=== PATIENT | female | born 1975 | race African-American/Black ===

== ENCOUNTER 2017-05-30 14:56 | Emergency (ER) | payer OTHER, BC ==
[~2017-05-30] VITALS: Ht 165.1 cm; Wt 97.3 kg
[~2017-05-30 14:56] MED LIST: ENDOCET 5-3251 EACH PO; FLEXERIL10 MG PO; MOTRIN800 MG PO; Motrin PO; PRENATAL1 EACH PO
[2017-05-30] MEDS ORDERED: FLEXERIL10 MG PO (17:03)
[2017-05-30] MEDS ORDERED: MOTRIN800 MG PO (17:03)
[2017-05-30 17:30] VITALS: BP 158/102
== END 2017-05-30 17:32 | disposition home or self-care (01) ==
LOC: EME 14:56
DX: S39.012A Strain of muscle, fascia and tendon of lower back, initial encounter (principal); V49.40XA Driver injured in collision with unspecified motor vehicles in traffic accident, initial encounter
CPT/HCPCS: 99281; 99284

== ENCOUNTER 2017-12-25 10:12 | Emergency (ER) | payer OTHER, BC ==
[~2017-12-25] VITALS: Ht 165.1 cm; Wt 102.6 kg
[2017-12-25] MEDS ORDERED: FLEXERIL10 MG PO (11:44)
[2017-12-25 11:53] VITALS: BP 168/98
== END 2017-12-25 11:53 | disposition home or self-care (01) ==
LOC: EME 10:12
DX: S39.012A Strain of muscle, fascia and tendon of lower back, initial encounter (principal); V43.52XA Car driver injured in collision with other type car in traffic accident, initial encounter; Z88.0 Allergy status to penicillin
CPT/HCPCS: 72100; 99281; 99283

== ENCOUNTER 2017-12-31 09:09 | Emergency (ER) | payer BC, OTHER ==
[~2017-12-31] VITALS: Ht 165.1 cm; Wt 98.3 kg
[2017-12-31] MEDS ORDERED: PCE500 MG PO (11:43)
[2017-12-31 11:57] VITALS: BP 115/69
== END 2017-12-31 11:58 | disposition home or self-care (01) ==
LOC: EME 09:09
PROVIDERS: Emergency Medicine
DX: J02.0 Streptococcal pharyngitis (principal); Z88.0 Allergy status to penicillin
CPT/HCPCS: 87502; 87651 90; 99281; 99284

== ENCOUNTER 2018-04-24 08:35 | Emergency (ER) | payer BC, OTHER ==
[~2018-04-24] VITALS: Ht 165.1 cm; Wt 98.0 kg
[~2018-04-24 08:35] MED LIST changes: +PCE500 MG PO
[2018-04-24 09:26] LABS: HEMATOCRIT 38.3 % (36.0-46.0); HEMOGLOBIN 12.7 G/DL (11.9-15.5); MCH 29.5 PG (29.0-34.0); MCHC 33.2 G/DL (30.0-36.0); MCV 89.1 FL (83-99); PLATELET COUNT 384 K/uL (156-360); RBC DIS.WIDTH-CV 12.2 % (11.8-14.6); RBC DIS.WIDTH-SD 39.8 % (39-53); WHITE BLOOD COUNT 4.4 K/uL (4.1-10.2)
[2018-04-24 09:35] LABS: CHLORIDE 110 mEq/L (99-109); POTASSIUM 4.5 mEq/L (3.7-5.4); SODIUM 142 mEq/L (136-147)
[2018-04-24 09:37] LABS: GLUCOSE 115 mg/dL (70-99)
[2018-04-24 09:41] LABS: CREATININE 0.8 mg/dL (0.6-1.3); GFR ESTIMATE (CALCULATED) > 59 mL/min/
[2018-04-24 09:42] LABS: UREA NITROGEN (BUN) 11 mg/dL (9-23)
[2018-04-24 09:45] LABS: TROP-I INTERPRETATION NEGATIVE; TROPONIN-I < 0.01 ng/mL (0.0-0.30)
[2018-04-24 09:49] LABS: QUANTITATIVE HCG < 4.0 MIU/ML
[2018-04-24 13:00] LABS: TROP-I INTERPRETATION NEGATIVE; TROPONIN-I < 0.01 ng/mL (0.0-0.30)
[2018-04-24] MEDS ORDERED: MOTRIN800 MG PO (13:05)
[2018-04-24 13:38] VITALS: BP 132/98
== END 2018-04-24 13:40 | disposition home or self-care (01) ==
LOC: EME 08:35
PROVIDERS: Nurse Practitioner Family
DX: R07.9 Chest pain, unspecified (principal); F43.9 Reaction to severe stress, unspecified; F41.9 Anxiety disorder, unspecified; Z88.0 Allergy status to penicillin
CPT/HCPCS: 71046; 80048; 84484; 84702; 85027; 93005; 99281; 99285; J1885